=== PATIENT | male | born 1960 | race Caucasian/White ===

== ENCOUNTER 2016-10-17 10:55 | Emergency (ER) | payer OTHER ==
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
--- NOTE | 2016-10-17 11:42 | ED ORDER SUMMARY ---
..... Patient: ROWAN MAURICE OrderSheet Merged With [facility] VisitID: [id number] [place] [address] 56y, M Registration Date/Time: 10/17/2016 ORDER SHEET Weight: 83.0 kg (stated) Allergies: No Known Drug Allergy GENERAL ORDERS: Clavicle Right Urgent (11:02 10/17/2016 DDean R.N. per protocol) (Ack 11:04 Darin) (11:40 DDean R.N.) Shoulder Immobilizer (11:40 10/17/2016 Jelena BURTON) (11:57 LUDYoermeir) MEDICATION ORDERS: Kxvjurq-Jxfqoz-Vgjaq Pertussis IM 0.5 mL (NOW, per protocol) (22:04 10/17/2016 DDean R.N. verbal order read back to Jelena BURTON) (Cancelled: Other22:06 DDean R.N.) IV FLUIDS: Zofran IV 4 mg (NOW) (11:14 10/17/2016 DDean R.N. per protocol) (11:15 DDean R.N.) Dilaudid IV 1 mg (HIGH ALERT MEDICATION, NOW) (11:14 10/17/2016 DDean R.N. per protocol) (11:16 DDean R.N.) ORDER SHEET NOTES: [Electronically signed by Opal Padgett R.N. (22:11 10/17/2016)] [Electronically signed by Meena Logan MD (22:37 10/17/2016)] [Electronically locked/signed by Opal Padgett R.N. (22:11 10/17/2016)]
--- NOTE | 2016-10-17 11:42 | ED ORDER SUMMARY ---
..... Patient: ROWAN MAURICE OrderSheet [facility] VisitID: [id number] [place] [address] 56y, M Registration Date/Time: 10/17/2016 ORDER SHEET Weight: 83.0 kg (stated) Allergies: No Known Drug Allergy GENERAL ORDERS: Clavicle Right Urgent (11:02 10/17/2016 DDean R.N. per protocol) (Ack 11:04 Darin) (11:40 DDean R.N.) Shoulder Immobilizer (11:40 10/17/2016 Jelena BURTON) (11:57 LUDYoermeir) MEDICATION ORDERS: Nrrtggo-Dmigjd-Ywuib Pertussis IM 0.5 mL (NOW, per protocol) (22:04 10/17/2016 DDean R.N. verbal order read back to Jelena BURTON) (Cancelled: Other22:06 DDean R.N.) IV FLUIDS: Zofran IV 4 mg (NOW) (11:14 10/17/2016 DDean R.N. per protocol) (11:15 DDean R.N.) Dilaudid IV 1 mg (HIGH ALERT MEDICATION, NOW) (11:14 10/17/2016 DDean R.N. per protocol) (11:16 DDean R.N.) ORDER SHEET NOTES: [Electronically signed by Opal Padgett R.N. (22:11 10/17/2016)] [Electronically signed by Meena Logan MD (22:37 10/17/2016)] [Electronically locked/signed by Opal Padgett R.N. (22:11 10/17/2016)]
--- NOTE | 2016-10-17 22:37 | ED MED RECONCILIATION SUMMARY ---
Patient: ROWAN MAURICE Medication Reconciliation Report [facility] VisitID: [id number] [place] [address] 56y, M Registration Date/Time: 10/17/2016 Weight: 83.0 kg Height/Length: (not available) BMI: 25.9 ALLERGIES: No Known Drug Allergy The patient's Home Medications are listed below: CONTINUE TAKING THE FOLLOWING MEDICATIONS: Humalan insulin pump Losartan Potassium Oral 25 mg, daily The source(s) of the original Home Medication information: Not obtained. The following Medications were given to the patient in the Emergency Department: Zofran [IVP] IVP 4 mg, administered: 10/17/2016 11:09:00 AM Dilaudid [IVP] IVP 1 mg, administered: 10/17/2016 11:11:00 AM The following Medications were prescribed to the patient: Zofran (orally disintegrating tablets) 4 mg: take 1-2 orally every 6 hours as needed for nausea. Dispense fifteen (15). No refill. Substitution is permissible. -- Meena Logan MD Oxycodone/APAP 5 mg/325 mg: take 1-2 tablets orally every 6 hours as needed for pain. Dispense twenty (20). No refill. -- Meena Logan MD
--- NOTE | 2016-10-17 22:37 | ED MAR SUMMARY ---
..... Medication Administration Record [facility] [address] [place] [address] Patient: ROWAN MAURICE Visit ID: [id number] 56y, M Weight: 83.0 kg Height/Length: 70.5 in BMI: 25.9 ALLERGIES: No Known Drug Allergy Given 11:10/17/2016 Opal Padgett R.N. Medication Administered: ZOFRAN [IVP] (ONDANSETRON HCL), Dose: 4 mg IVP over 1 minute(s), Site: #1. Medication Ordered: Zofran IV 4 mg (NOW). Given 11:10/17/2016 Opal Padgett R.N. Medication Administered: DILAUDID [IVP] (HYDROMORPHONE HCL PF), Dose: 1 mg IVP over 1 minute(s), Site: #1. Medication Ordered: Dilaudid IV 1 mg (HIGH ALERT MEDICATION, NOW).
--- NOTE | 2016-10-17 22:37 | ED DISCHARGE INSTRUCTIONS ---
Patient: ROWAN MAURICE General Instructions [facility] VisitID: [id number] [address] [place] [address] 56y, M Registration Date/Time: 10/17/2016 Closed, displaced right clavicle shaft fracture. INSTRUCTIONS Apply ice for 15-20 minutes three times a day as needed and until better. Don't apply ice directly to skin and don't use while asleep. Warnings: SEDATIVE MEDICATION: You were given sedative medication during your visit. Do not drive or operate dangerous machinery for 6 hours. GENERAL WARNINGS: Return or contact your physician immediately if your condition worsens or changes unexpectedly, if not improving as expected, or if other problems arise. Your Current Medications: CONTINUE TAKING THE FOLLOWING MEDICATIONS: Humalan insulin pump *. Losartan Potassium Oral : 25 mg daily. Prescription Medications: Zofran (orally disintegrating tablets) 4 mg: take 1-2 orally every 6 hours as needed for nausea. Dispense fifteen (15). No refill. Substitution is permissible. Oxycodone/APAP 5 mg/325 mg: take 1-2 tablets orally every 6 hours as needed for pain. Dispense twenty (20). No refill. Understanding of the discharge instructions verbalized by patient and family. Follow-up with: Tin Steen M.D., Ortho, , [address] [place], [id number] Follow up. Call for the next available appointment. Reason for referral: displaced clavicular fracture. ADDITIONAL INFORMATION Fracture:Clavicle There is a break (fracture) in your collarbone. This will cause swelling, pain and bruising. The first 3-4 weeks will be the most painful because deep breathing, coughing or changing position from sitting to lying down, may cause the broken ends to move slightly. The fracture will heal in about 4-6 weeks. In children this injury will heal by reshaping the bone back to normal. In adults, a noticeable bump in the bone may remain. Treatment is with a sling or shoulder immobilizer (special type of arm sling). This supports your arm and reduces pain. Home Care 1) Apply an ice pack (ice cubes in a plastic bag, wrapped in a towel) over the injured area for 20 minutes every 1-2 hours the first day. Continue with ice packs 3-4 times a day for the next two days, then as needed for the relief of pain and swelling. 2) If a sling or shoulder immobilizer was provided, wear it for comfort. You may remove it for bathing and when you go to sleep. Take your arm out of the sling for a little while each day and move your shoulder to avoid stiffness. 3) No heavy lifting or raising the injured arm overhead until you are pain free. No sports or P.E. for at least four weeks or until cleared by your doctor to do so. 4) You may use acetaminophen (Tylenol) or ibuprofen (Motrin, Advil) to control pain, unless another pain medicine was prescribed. [ NOTE : If you have chronic liver or kidney disease or ever had a stomach ulcer or GI bleeding, talk with your doctor before using these medicines.] Follow Up with your doctor within one week to be sure the bone is healing properly, or as advised by our staff. [NOTE: A radiologist will review any X-rays that were taken. We will notify you of any new findings that may affect your care.] Get Prompt Medical Attention if any of the following occur: -- Increased swelling or large area of bruising over the collar bone -- Fingers become swollen, cold, blue, numb or tingly -- Shortness of breath, dizziness or weakness You have been given the following additional information: Fracture, Clavicle (Electronically signed by Meena Logan MD 10/17/2016 22:37)
--- NOTE | 2016-10-17 22:37 | ED MED RECONCILIATION SUMMARY ---
Patient: ROWAN MAURICE Medication Reconciliation Report [facility] VisitID: [id number] [place] [address] 56y, M Registration Date/Time: 10/17/2016 Weight: 83.0 kg Height/Length: (not available) BMI: 25.9 ALLERGIES: No Known Drug Allergy The patient's Home Medications are listed below: CONTINUE TAKING THE FOLLOWING MEDICATIONS: Humalan insulin pump Losartan Potassium Oral 25 mg, daily The source(s) of the original Home Medication information: Not obtained. The following Medications were given to the patient in the Emergency Department: Zofran [IVP] IVP 4 mg, administered: 10/17/2016 11:09:00 AM Dilaudid [IVP] IVP 1 mg, administered: 10/17/2016 11:11:00 AM The following Medications were prescribed to the patient: Zofran (orally disintegrating tablets) 4 mg: take 1-2 orally every 6 hours as needed for nausea. Dispense fifteen (15). No refill. Substitution is permissible. -- Meena Logan MD Oxycodone/APAP 5 mg/325 mg: take 1-2 tablets orally every 6 hours as needed for pain. Dispense twenty (20). No refill. -- Meena Logan MD
--- NOTE | 2016-10-17 22:37 | ED DISCHARGE INSTRUCTIONS ---
Patient: ROWAN MAURICE General Instructions [facility] VisitID: [id number] [address] [place] [address] 56y, M Registration Date/Time: 10/17/2016 Closed, displaced right clavicle shaft fracture. INSTRUCTIONS Apply ice for 15-20 minutes three times a day as needed and until better. Don't apply ice directly to skin and don't use while asleep. Warnings: SEDATIVE MEDICATION: You were given sedative medication during your visit. Do not drive or operate dangerous machinery for 6 hours. GENERAL WARNINGS: Return or contact your physician immediately if your condition worsens or changes unexpectedly, if not improving as expected, or if other problems arise. Your Current Medications: CONTINUE TAKING THE FOLLOWING MEDICATIONS: Humalan insulin pump *. Losartan Potassium Oral : 25 mg daily. Prescription Medications: Zofran (orally disintegrating tablets) 4 mg: take 1-2 orally every 6 hours as needed for nausea. Dispense fifteen (15). No refill. Substitution is permissible. Oxycodone/APAP 5 mg/325 mg: take 1-2 tablets orally every 6 hours as needed for pain. Dispense twenty (20). No refill. Understanding of the discharge instructions verbalized by patient and family. Follow-up with: Tin Steen M.D., Ortho, , [address] [place], [id number] Follow up. Call for the next available appointment. Reason for referral: displaced clavicular fracture. ADDITIONAL INFORMATION Fracture:Clavicle There is a break (fracture) in your collarbone. This will cause swelling, pain and bruising. The first 3-4 weeks will be the most painful because deep breathing, coughing or changing position from sitting to lying down, may cause the broken ends to move slightly. The fracture will heal in about 4-6 weeks. In children this injury will heal by reshaping the bone back to normal. In adults, a noticeable bump in the bone may remain. Treatment is with a sling or shoulder immobilizer (special type of arm sling). This supports your arm and reduces pain. Home Care 1) Apply an ice pack (ice cubes in a plastic bag, wrapped in a towel) over the injured area for 20 minutes every 1-2 hours the first day. Continue with ice packs 3-4 times a day for the next two days, then as needed for the relief of pain and swelling. 2) If a sling or shoulder immobilizer was provided, wear it for comfort. You may remove it for bathing and when you go to sleep. Take your arm out of the sling for a little while each day and move your shoulder to avoid stiffness. 3) No heavy lifting or raising the injured arm overhead until you are pain free. No sports or P.E. for at least four weeks or until cleared by your doctor to do so. 4) You may use acetaminophen (Tylenol) or ibuprofen (Motrin, Advil) to control pain, unless another pain medicine was prescribed. [ NOTE : If you have chronic liver or kidney disease or ever had a stomach ulcer or GI bleeding, talk with your doctor before using these medicines.] Follow Up with your doctor within one week to be sure the bone is healing properly, or as advised by our staff. [NOTE: A radiologist will review any X-rays that were taken. We will notify you of any new findings that may affect your care.] Get Prompt Medical Attention if any of the following occur: -- Increased swelling or large area of bruising over the collar bone -- Fingers become swollen, cold, blue, numb or tingly -- Shortness of breath, dizziness or weakness You have been given the following additional information: Fracture, Clavicle (Electronically signed by Meena Logan MD 10/17/2016 22:37)
--- NOTE | 2016-10-17 22:37 | ED MAR SUMMARY ---
..... Medication Administration Record [facility] [address] [place] [address] Patient: ROWAN MAURICE Visit ID: [id number] 56y, M Weight: 83.0 kg Height/Length: 70.5 in BMI: 25.9 ALLERGIES: No Known Drug Allergy Given 11:10/17/2016 Opal Padgett R.N. Medication Administered: ZOFRAN [IVP] (ONDANSETRON HCL), Dose: 4 mg IVP over 1 minute(s), Site: #1. Medication Ordered: Zofran IV 4 mg (NOW). Given 11:10/17/2016 Opal Padgett R.N. Medication Administered: DILAUDID [IVP] (HYDROMORPHONE HCL PF), Dose: 1 mg IVP over 1 minute(s), Site: #1. Medication Ordered: Dilaudid IV 1 mg (HIGH ALERT MEDICATION, NOW).
== END 2016-10-17 11:50 | disposition home or self-care (01) ==
LOC: ED SRH 10:55
DX: S42.021A Displaced fracture of shaft of right clavicle, initial encounter for closed fracture (principal); V28.0XXA Motorcycle driver injured in noncollision transport accident in nontraffic accident, initial encounter; Y93.89 Activity, other specified; Y99.8 Other external cause status; Y92.410 Unspecified street and highway as the place of occurrence of the external cause; I10 Essential (primary) hypertension; E11.9 Type 2 diabetes mellitus without complications; Z79.4 Long term (current) use of insulin; Z79.899 Other long term (current) drug therapy